=== PATIENT | male | born 1985 ===

== ENCOUNTER 2022-02-23 05:34 | Outpatient (CLI) | payer OTHER ==
[~2022-02-23] VITALS: Ht 172.2 cm; Wt 97.7 kg
[2022-02-27] MEDS ORDERED: FAMO10TA PO (13:34)
[2022-02-27] MEDS ORDERED: LISI1TAB44 PO (13:34)
== END 2022-02-27 13:38 | disposition home or self-care (01) ==
LOC: PREOP 05:34
PROVIDERS: ATTEND Otolaryngology Otolaryngology/Facial Plastic Surgery
DX: Z01.818 Encounter for other preprocedural examination (principal)

== ENCOUNTER 2022-03-02 07:09 | Day surgery (SDC) | payer OTHER ==
[2022-03-02] VITALS (10 sets, daily range): BP systolic 115–136; BP diastolic 76–95
[~2022-03-02] VITALS: Ht 172.2 cm; Wt 97.7 kg
[~2022-03-02 07:09] MED LIST: FAMO10TA PO; LISI1TAB44 PO
[2022-03-02] MEDS ORDERED: LACTATED RINGERS 1,000 ML IV PRN (07:15)
[2022-03-02 07:44] LABS: BASOPHILS # (AUTO) 0.1 10^3/uL (0.0-0.1); BASOPHILS % (AUTO) 1 % (0-10); EOSINOPHILS # (AUTO) 0.3 10^3/uL (0.0-0.3); EOSINOPHILS % (AUTO) 3 % (0-10); HEMATOCRIT 42 % (40-54); HEMOGLOBIN 14.3 g/dL (13.3-17.7); LYMPHOCYTES # (AUTO) 2.2 10^3/uL (1.0-4.0); LYMPHOCYTES % (AUTO) 28 % (12-44); MEAN CORPUSCULAR HEMOGLOBIN 30 pg (25-34); MEAN CORPUSCULAR HGB CONC 34 g/dL (32-36); MEAN CORPUSCULAR VOLUME 90 fL (80-99); MEAN PLATELET VOLUME 11.5 fL (9.0-12.2); MONOCYTES # (AUTO) 0.4 10^3/uL (0.0-1.0); MONOCYTES % (AUTO) 5 % (0-12); NEUTROPHILS # (AUTO) 4.9 10^3/uL (1.8-7.8); NEUTROPHILS % (AUTO) 63 % (42-75); PLATELET COUNT 294 10^3/uL (130-400); WHITE BLOOD COUNT 7.8 10^3/uL (4.3-11.0)
[2022-03-02] MEDS ORDERED: COCAINE HCL 4% 2 ML SYR ONE (07:56)
[2022-03-02] MEDS ORDERED: LIDOCAINE/EPI 1%-1:100,000 (XYLOCAINE) 10 ML ONE (07:56)
[2022-03-02] MEDS ORDERED: PHENYLEPHRINE 0.25% NASAL SPR (NEO-SYNEPHRINE) 15 ML NS ONE ×2 (07:57→08:39)
[2022-03-02 08:09] LABS: POTASSIUM 3.8 MMOL/L (3.6-5.0)
[2022-03-02 08:10] LABS: CALCIUM 8.9 MG/DL (8.5-10.1)
[2022-03-02] MEDS ORDERED: fentaNYL INJ 100 MCG/2 ML AMP ONE (08:11)
[2022-03-02] MEDS ORDERED: MIDAZOLAM 2 MG/2 ML (VERSED) VIAL ONE (08:11)
[2022-03-02 08:14] LABS: CREATININE SERUM 1.13 MG/DL (0.60-1.30)
[2022-03-02] MEDS ORDERED: COCAINE HCL 4% 2 ML SYR TOP ONE (08:14)
[2022-03-02] MEDS: LIDOCAINE/EPI 1%-1:100,000 (XYLOCAINE) 20ML INJ ONE (08:41)
--- NOTE | 2022-03-02 09:30 | Progress Note-Pre Operative ---
Pre-Operative Progress Note Date of Available H&P: Mar 02, 2022 Date H&P Reviewed: Mar 02, 2022 Time H&P Reviewed: 08:30 History & Physical: H&P Reviewed, Patient Examed, No changes noted Changes from last HP none Pre-Operative Diagnosis: [id number] Nasal Septum, Bilat Hyper of INf Turbs RAVEN VARGAS MD Mar 02, 2022 09:30
--- NOTE | 2022-03-02 09:31 | Anesthesia-General Post-Op ---
General Patient Condition Mental Status/LOC: Same as Preop Cardiovascular: Satisfactory Nausea/Vomiting: Absent Respiratory: Satisfactory Pain: Controlled Complications: Absent Post Op Complications Complications None Follow Up Care/Instructions Patient Instructions None needed. Anesthesia/Patient Condition Patient Condition Patient is doing well, no complaints, stable vital signs, no apparent adverse anesthesia problems. No complications reported per nursing. SWAPNA RODRIGUEZ CRNA Mar 02, 2022 09:31
--- NOTE | 2022-03-02 09:31 | Progress Note-Post Operative ---
Post-Operative Progess Note Surgeon (s)/Manufacturing Engineer Assembly (s) Surgeon RAVEN VARGAS MD Manufacturing Engineer Assembly n/a Pre-Operative Diagnosis [id number] Nasal Septum, Bilat Hyper of INf Turbs Post-Operative Diagnosis same Post-Op Procedure Note Date of Procedure: Mar 02, 2022 Name of Procedure Performed: Nasal Septoplasty, Bilateral Reductuction of the iNferior Turbinates Description & Findings Description and Findings: n/a Anesthesia Type get Estimated Blood Loss minimal Packing none. Specimen(s) collected/removed nasal septum RAVEN VARGAS MD Mar 02, 2022 09:31
[2022-03-02] MEDS ORDERED: fentaNYL INJ 100 MCG/2 ML AMP IVP ONE (09:45)
[2022-03-02] MEDS ORDERED: D5 1/2 NS W/KCL 20 MEQ/L 1,000 ML IV SCH (09:45)
[2022-03-02] MEDS ORDERED: PROMETHAZINE INJ 25 MG/ML (PHENERGAN) AMP IVP PRN (09:45)
[2022-03-02] MEDS ORDERED: ONDANSETRON 4 MG/2 ML (SDV) Z0FRAN IVP PRN (09:45)
[2022-03-02] MEDS ORDERED: HYDROcodone/APAP 5 MG/325 MG (LORTAB) TAB PO PRN (09:45)
[2022-03-02] MEDS ORDERED: AMOX-355 PO (10:55)
[2022-03-02] MEDS ORDERED: ACHD5005 PO (10:55)
== END 2022-03-02 11:33 | disposition home or self-care (01) ==
LOC: SDC 07:09
PROVIDERS: ATTEND Otolaryngology Otolaryngology/Facial Plastic Surgery
DX: J34.2 Deviated nasal septum (principal); J35.3 Hypertrophy of tonsils with hypertrophy of adenoids; J34.89 Other specified disorders of nose and nasal sinuses; Z87.891 Personal history of nicotine dependence
CPT/HCPCS: 36415; 80048; 85025; 87081; 88300